=== PATIENT | male | born 1960 | race Caucasian/White ===

== ENCOUNTER → 2018-04-26 08:05 | Outpatient (BNVA) | payer MEDICARE, SELFPAY | PROVIDERS: PCP Family Medicine; Visit Provider Urology | DX: N39.41 Urge incontinence (principal); N42.89 Other specified disorders of prostate; Z12.5 Encounter for screening for malignant neoplasm of prostate; Z80.42 Family history of malignant neoplasm of prostate | CPT/HCPCS: 36415; 99213; 84153 ==

== ENCOUNTER 2018-04-26 09:02 | Outpatient (CLI) | payer MEDICARE, SELFPAY ==
[2018-04-27 09:34] LABS: PSA, Diagnostic 0.8 ng/ml (0-3.5)
== END 2018-04-26 09:22 ==
PROVIDERS: PCP Family Medicine; Visit Provider Urology
DX: N42.9 Disorder of prostate, unspecified (principal)
CPT/HCPCS: 36415; 84153

== ENCOUNTER 2018-10-04 15:59 | Outpatient (REF) | payer MEDICARE, SELFPAY ==
[2018-10-04 21:41] LABS: COMMENT (LAB VIEW ONLY) 65.96 mg/dL; Microalb ug/mg Crea 8.8 ug/mg Cr
== END 2018-10-04 16:19 ==
LOC: NCHCN 15:59
PROVIDERS: PCP Family Medicine; Visit Provider Registered Nurse
DX: I10 Essential (primary) hypertension (principal); N28.9 Disorder of kidney and ureter, unspecified; Z79.899 Other long term (current) drug therapy
CPT/HCPCS: 82043; 82570

== ENCOUNTER → 2018-12-07 10:21 | Outpatient (BNVA) | payer MEDICARE, SELFPAY | PROVIDERS: PCP Family Medicine; Visit Provider Urology | DX: N39.41 Urge incontinence (principal); R39.9 Unspecified symptoms and signs involving the genitourinary system; Z80.42 Family history of malignant neoplasm of prostate; R19.4 Change in bowel habit | CPT/HCPCS: 99213 ==

== ENCOUNTER 2018-12-07 11:23 | Outpatient (CLI) | payer MEDICARE, SELFPAY ==
[2018-12-08 09:42] LABS: PSA, Screening 0.8 ng/ml (0-3.5)
== END 2018-12-07 11:43 ==
PROVIDERS: Nurse Practitioner Gerontology; PCP Family Medicine; Visit Provider Urology
DX: N40.2 Nodular prostate without lower urinary tract symptoms (principal); Z80.42 Family history of malignant neoplasm of prostate; Z12.5 Encounter for screening for malignant neoplasm of prostate; N39.41 Urge incontinence; R39.9 Unspecified symptoms and signs involving the genitourinary system; R19.4 Change in bowel habit
CPT/HCPCS: 36415; 84153; 99213

== ENCOUNTER 2019-01-03 14:38 | Outpatient (REF) | payer MEDICARE, SELFPAY | END 2019-01-03 14:58 | LOC: NCHCN 14:38 | PROVIDERS: PCP Registered Nurse; Visit Provider Registered Nurse | DX: D64.9 Anemia, unspecified (principal); R19.4 Change in bowel habit; Z11.59 Encounter for screening for other viral diseases; Z13.818 Encounter for screening for other digestive system disorders ==

== ENCOUNTER 2019-01-04 04:53 | Outpatient (REF) | payer MEDICARE, SELFPAY ==
[2019-01-04 00:44] LABS: HCT 41.3 % (40.0-50.0); HGB 13.6 g/dL (13.5-17.5); Mean Corp. HGB Concentration 32.9 g/dL (32.0-36.0); Mean Corpuscular Hemoglobin 29.4 pg (27.0-33.0); Mean Corpuscular Volume 89.4 fL (80-95); Mean Platelet Volume 10.1 fL (8.0-11.0); Platelet Count 280 x1000/uL (130-400); RBC 4.62 m/cumm (4.50-6.00); RBC Distribution Width 13.2 % (11.8-14.1); White Blood Cell Count 6.61 k/cumm (4.4-10.8)
[2019-01-05 10:10] LABS: Hepatitis C Ab w Rflx HCV PCR Negative (NEGAT)
== END 2019-01-04 05:13 ==
LOC: NCHCN 04:53
PROVIDERS: PCP Registered Nurse; Visit Provider Registered Nurse
DX: D64.9 Anemia, unspecified (principal); R19.4 Change in bowel habit; Z11.59 Encounter for screening for other viral diseases
CPT/HCPCS: 85027; 86803

== ENCOUNTER → 2019-07-05 13:35 | Outpatient (BNVA) | payer MEDICARE, SELFPAY | PROVIDERS: PCP Registered Nurse; Referring Provider Registered Nurse; Visit Provider Urology | DX: N39.41 Urge incontinence (principal); R39.9 Unspecified symptoms and signs involving the genitourinary system; Z80.42 Family history of malignant neoplasm of prostate | CPT/HCPCS: 99213 ==

== ENCOUNTER → 2020-01-06 07:45 | Outpatient (BNVA) | payer MEDICARE, SELFPAY | PROVIDERS: PCP Registered Nurse; Referring Provider Registered Nurse; Visit Provider Urology | DX: N40.1 Benign prostatic hyperplasia with lower urinary tract symptoms (principal); N39.41 Urge incontinence; Z80.42 Family history of malignant neoplasm of prostate; R39.89 Other symptoms and signs involving the genitourinary system | CPT/HCPCS: 99213 ==

== ENCOUNTER 2020-10-02 04:17 | Outpatient (CLI) | payer MEDICARE, SELFPAY ==
[2020-10-02 08:20] LABS: Sodium, Urine 21 mmol/L
[2020-10-02 08:20] LABS: Anion Gap 9.6 mmol/L (3-11); BUN 23 mg/dL (7-18); CO2 27.4 mmol/L (21.0-32.0); CREATININE 1.8 mg/dL (0.70-1.30); Calcium 9.3 mg/dL (8.5-10.1); Chloride 108 mmol/L (98-107); Estimated GFR 38.81 (mL/min/1.73m2); Glucose 123 mg/dL (74-106); Potassium 4.1 mmol/L (3.5-5.1); Sodium 145 mmol/L (136-145)
[2020-10-02 17:20] LABS: Osmolality, Urine 244 mOsm/kg (150-1,150)
[2020-10-02 17:21] LABS: Osmolality Serum 305 mOsm/kg (275-295)
[2020-10-02 17:48] LABS: PSA, Diagnostic 0.9 ng/mL (0.0-3.5)
== END 2020-10-02 04:18 | disposition home or self-care (01) ==
LOC: LBO 04:17
PROVIDERS: PCP Family Medicine; Visit Provider Urology
DX: R39.15 Urgency of urination (principal); N18.9 Chronic kidney disease, unspecified; E87.0 Hyperosmolality and hypernatremia; Z51.81 Encounter for therapeutic drug level monitoring; Z80.42 Family history of malignant neoplasm of prostate; N40.1 Benign prostatic hyperplasia with lower urinary tract symptoms
CPT/HCPCS: 36415; 80048; 83935; 83930; 84153; 84300

== ENCOUNTER → 2021-01-08 10:22 | Outpatient (BNVA) | payer MEDICARE, SELFPAY | PROVIDERS: PCP Family Medicine; Referring Provider Registered Nurse; Visit Provider Nurse Practitioner Gerontology | DX: N40.1 Benign prostatic hyperplasia with lower urinary tract symptoms (principal); N39.41 Urge incontinence; R39.9 Unspecified symptoms and signs involving the genitourinary system; Z80.42 Family history of malignant neoplasm of prostate; Z79.899 Other long term (current) drug therapy | CPT/HCPCS: 99214 ==

== ENCOUNTER → 2021-04-15 09:01 | Outpatient (BNVA) | payer MEDICARE, SELFPAY | PROVIDERS: PCP Family Medicine; Referring Provider Family Medicine; Visit Provider Nurse Practitioner Gerontology | DX: N39.41 Urge incontinence (principal); Z80.42 Family history of malignant neoplasm of prostate; R39.89 Other symptoms and signs involving the genitourinary system; Z79.899 Other long term (current) drug therapy | CPT/HCPCS: 99213 ==

== ENCOUNTER → 2021-10-08 09:24 | Outpatient (BNVA) | payer MEDICARE, SELFPAY | PROVIDERS: PCP Family Medicine; Referring Provider Family Medicine; Visit Provider Nurse Practitioner Gerontology | DX: N39.41 Urge incontinence (principal); Z80.42 Family history of malignant neoplasm of prostate; Z12.5 Encounter for screening for malignant neoplasm of prostate; N40.1 Benign prostatic hyperplasia with lower urinary tract symptoms | CPT/HCPCS: 36415; 51798; 99214 ==

== ENCOUNTER 2021-10-08 14:01 | Outpatient (REF) | payer MEDICARE, SELFPAY | END 2021-10-08 14:02 | disposition home or self-care (01) | LOC: LBN 14:01 | PROVIDERS: PCP Family Medicine; Visit Provider Nurse Practitioner Gerontology | DX: N40.1 Benign prostatic hyperplasia with lower urinary tract symptoms (principal); N13.8 Other obstructive and reflux uropathy; N39.41 Urge incontinence; R39.89 Other symptoms and signs involving the genitourinary system; Z80.42 Family history of malignant neoplasm of prostate | CPT/HCPCS: 84153 ==

== ENCOUNTER 2021-10-08 15:39 | Outpatient (REF) | payer MEDICARE, SELFPAY ==
--- OUTSIDE RECORDS SUMMARY | 2021-10-08 15:43 | XMS_ITS | CCD ---
:1960 Author Care Team Providers Name Role Phone BONITA, Vania Attending Physician Unavailable Vital Signs Unknown or Not Available. Allergies Allergy Code Allergy Type Reaction Status No Known Allergies {Clinical 0 Drug allergy Active monitoring unavailable} Procedures Unknown or Not Available. History of Immunizations Unknown or Not Available. Problems Unknown or Not Available. Results COMPREHENSIVE METABOLIC PANEL (CMP) - Co llect Date/Time: 05/01/2021 09:30 Test Name Code Test Result Test Units Test Ref Range GLUCOSE 2345-7 119 mg/dL L=70 H=11 6 BUN 3094-0 26 mg/dL L=6 H=25 CREATININE 2160-0 1.77 mg/dL L=0.67 H=1.17 SODIUM SERUM 2951-2 145 mmol/L L=136 H=14 5 POTASSIUM SERUM 2823-3 4.6 mmol/L L=3.4 H =5.2 CHLORIDE SERUM 2075-0 108 mmol/L L=96 H= 110 CARBON DIOXIDE (CO2) 2028-9 28 mmol/L L=22 H=34 ANION GAP 35661-2 8.8 mmol/L CALCIUM SERUM 12316-2 9.6 mg/dL L=8.2 H=10.2 BILIRUBIN TOTAL 1975-2 0.4 mg/dL L=0.0 H =1.3 ALK. PHOS. 6768-6 62 U/L L=46 H=11 6 SGOT (AST) 1920-8 15 U/L L=15 H=37 SGPT (ALT) 1742-6 41 U/L L=12 H=78 TOTAL PROTEIN 2885-2 7.7 gm/dL L=6.0 H=8 .0 ALBUMIN 1751-7 4.2 gm/dL L=3.4 H=5. 0 AGE 61 years eGFR (non-Afr.Amer.) 89238-2 39 mL/min eGFR (Afr-[place]ian) 20953-2 48 mL/min LITHIUM - Collect Date/Time: 05/01/2021 09:30 Test Name Code Test Result Test Units Test Ref Range LITHIUM 3719-2 1.0 mEq/L L=0.6 H=1. 2 THYROID TESTING CASCADE* - Collect Date/ Time: 05/01/2021 09:30 Test Name Code Test Result Test Units Test Ref Range TSH. 3014-8 1.105 uIU/mL L=0.360 H=3. 740 LIPID PANEL - Collect Date/Time: 09:30 Test Name Code Test Result Test Units Test Ref Range CHOLESTEROL 2093-3 190 mg/dL L=0 H=200 TRIGLYCERIDES 2571-8 145 mg/dL L=56 H=240 HDL 2085-9 41 mg/dL L=30 H=74 non-HDL-C 32058-7 149 mg/dL L=0 H=160 LDL (CALC) 61521-6 120 mg/dL L=0 H=130 % HDL 21.6 % Chol/HDL Ratio 9830-1 4.6 L=0.0 H=4.9 CHD Relative Risk 0.9 x Avg L=0.0 H=1.0 LDL/HDL Ratio 80285-9 2.9 L=0.0 H=3.5 CHD Relative Risk. 0.8 x Avg L=0.0 H=1.0 FASTING STATUS: FASTING N/A Active Medications Medication Code Dose Units Frequency Route Modification Start Date/Time A BETABLOCKER 0 50 MILLIGRAMS DAILY ORAL 019 18:12 Prescription Detail TAKE 50 MILLIGRAMS ORAL RADHA Y amLODIPine 128601 5 MILLIGRAMS DAILY ORAL 10/30/2018 Besylate 5MG 18:12 Oral Tablet Prescription Detail TAKE 5 MILLIGRAMS ORAL DAILY Aspir 81 81MG 543109 81 MILLIGRAMS DAILY ORAL 019 Oral Tablet, 18:12 Enteric Coated Prescription Detail TAKE 81 MILLIGRAMS ORAL RADHA Y Aspir Low 1543900 81 MILLIGRAMS DAILY ORAL 10/30/2018 81MG Oral 18:12 Tablet, Enteric Coated Prescription Detail TAKE 81 MILLIGRAMS ORAL RADHA Y BUPROPION HCL 0 100 MILLIGRAMS DAILY ORAL 019 100MG ORAL 18:12 TABLET Prescription Detail TAKE 100 MILLIGRAMS ORAL RADHA LY Cetirizine HCl 74777166808 10 MILLIGRAMS DAILY ORAL 10MG Oral 18:12 Tablet Prescription Detail TAKE 10 MILLIGRAMS ORAL RADHA Y clonazePAM 729969 0.5 MILLIGRAMS BEDTIME ORAL 10/30/2018 0.5MG Oral 18:12 Tablet Prescription Detail TAKE 0.5 MILLIGRAMS ORAL BED TIME clonazePAM 0.5MG 622424 0.5 MILLIGRAMS BEDTIME ORAL 09/2018 Oral Tablet, 18:12 Disintegrating Prescription Detail TAKE 0.5 MILLIGRAMS ORAL BED TIME Fish Oil 31025695812 000 MILLIGRAMS DAILY ORAL 10/31/19 19 1000MG Oral 18:12 Capsule, Liquid Filled Prescription Detail TAKE 000 MILLIGRAMS ORAL RADHA LY FLONASE 0 2 SPRAY DAILY NASAL 10/30/2018 0.05MG/ACTUATION NASAL 1 8:12 SPRA Prescription Detail SPRAY 2 SPRAY NASAL DAILY LECITHIN 0 1 CAPSULE DAILY ORAL 10/30/2018 18:1 2 CAPSULE Prescription Detail TAKE 1 CAPSULE ORAL DAILY LEVITRA 10 MG 0 10 MILLIGRAMS NEEDED ORAL 10/30 TABLET 18:12 Prescription Detail TAKE 10 MILLIGRAMS ORAL N EEDED [place] [id number] 900-12 MILLIGRAMS EVERY ORAL 10/30/2018 Carbonate OTHER DAY 18:12 300MG Oral Capsule Prescription Detail TAKE 900-12 MILLIGRAMS ORAL EVERY OTHER DAY [place] [id number] 900 MILLIGRAMS EVERY ORAL 10/30/2018 Carbonate OTHER DAY 18:12 300MG Oral Capsule Prescription Detail TAKE 900 MILLIGRAMS ORAL GERALDINE RY OTHER DAY [place] 783598 8454 MILLIGRAMS EVERY ORAL 10/30/2018 Carbonate OTHER DAY 18:12 300MG Oral Capsule Prescription Detail TAKE 1200 MILLIGRAMS ORAL EV ROX OTHER DAY MELATONIN 5 MG 0 5 MILLIGRAMS BEDTIME ORAL 2018 QUICK DISSOLVE 18:12 Prescription Detail TAKE 5 MILLIGRAMS ORAL BEDTI ME Oxybutynin 5MG 662986 5 MILLIGRAMS NEEDED ORAL 09/2018 Oral Tablet DAILY 18:12 Prescription Detail TAKE 5 MILLIGRAMS ORAL NE EDED DAILY PROAIR HFA 0 2 PUFF NEEDED INHALATION 10/31/19 19 0.09MG/1ACTUATION 18:12 INHALA Prescription Detail 2 PUFF INHALATION NEEDED SEROquel 982333 100 MILLIGRAMS BEDTIME ORAL 10/30/2018 100MG Oral 18:12 Tablet Prescription Detail TAKE 100 MILLIGRAMS ORAL BED TIME Tamsulosin HCl 360452 0.4 MILLIGRAMS BEDTIME ORAL 2018 0.4MG Oral 18:12 Capsule Prescription Detail TAKE 0.4 MILLIGRAMS ORAL BED TIME traZODone 401581 1-2 TABLET BEDTIME ORAL 10/30/2018 hydrochloride 18:12 100MG Oral Tablet Prescription Detail TAKE 1-2 TABLET ORAL BEDTIME Vitamin C 481423 500 MILLIGRAMS DAILY ORAL 10/30/2018 500MG Oral 18:12 Tablet Prescription Detail TAKE 500 MILLIGRAMS ORAL RADHA LY Vitamin D3 38871604537 1 TABLET DAILY ORAL 9 400 IU Oral 18:12 Tablet Prescription Detail TAKE 1 TABLET ORAL DAILY WELLBUTRIN 75MG 0 75 MILLIGRAMS DAILY ORAL 10/30 ORAL TABLET 18:12 Prescription Detail TAKE 75 MILLIGRAMS ORAL RADHA Y Medications Administered During Visit Unknown or Not Available. Encounters Encounter Diagnosis Diagnosis Code Start Date Depressed bipolar I disorder in partial remission [id number] 05/01/2021 Social History Smoking Status Code Start Date End Date Never smoker [id number] Patient Decision Aids Unknown or Not Available. Discharge Instructions You were admitted to [facility] on 05/01/2021 08:44 with a principal diagnosis of Bipolar disorder, in partia l remission, most recent episode depressed You had the following tests done: COMPREHENSIVE METABOLIC PANEL (CMP) LIPID PANEL LITH IUM THYROID TESTING CASCADE* You were discharged from [facility] on 05/01/2021 08:44 Should you have any questions prior to d ischarge, please contact a member of your healthcare team. If you have left the ho spital and have any questions, please contact your primary care physician. Chief Complaint and Reason For Visit Unknown or Not Available. Function Status Unknown or Not Available. Plan of Care Unknown or Not Available. Referral/Transition of Care Unknown or Not Available.
--- OUTSIDE RECORDS SUMMARY | 2021-10-08 15:43 | XMS_ITS | CCD ---
:1960 Author Care Team Providers Name Role Phone Franchesca VELARDE Attending Physician Unavailable Vital Signs Unknown or Not Available. Allergies Allergy Code Allergy Type Reaction Status No Known Allergies {Clinical 0 Drug allergy Active monitoring unavailable} Procedures Unknown or Not Available. History of Immunizations Unknown or Not Available. Problems Unknown or Not Available. Results Unknown or Not Available. Active Medications Medication Code Dose Units Frequency Route Modification Start Date/Time A BETABLOCKER 0 50 MILLIGRAMS DAILY ORAL 019 18:12 Prescription Detail TAKE 50 MILLIGRAMS ORAL RADHA Y amLODIPine 320857 5 MILLIGRAMS DAILY ORAL 10/30/2018 Besylate 5MG 18:12 Oral Tablet Prescription Detail TAKE 5 MILLIGRAMS ORAL DAILY Aspir 81 81MG 231381 81 MILLIGRAMS DAILY ORAL 019 Oral Tablet, 18:12 Enteric Coated Prescription Detail TAKE 81 MILLIGRAMS ORAL RADHA Y Aspir Low 9307480 81 MILLIGRAMS DAILY ORAL 10/30/2018 81MG Oral 18:12 Tablet, Enteric Coated Prescription Detail TAKE 81 MILLIGRAMS ORAL RADHA Y BUPROPION HCL 0 100 MILLIGRAMS DAILY ORAL 019 100MG ORAL 18:12 TABLET Prescription Detail TAKE 100 MILLIGRAMS ORAL RADHA LY Cetirizine HCl 95874723337 10 MILLIGRAMS DAILY ORAL 10MG Oral 18:12 Tablet Prescription Detail TAKE 10 MILLIGRAMS ORAL RADHA Y clonazePAM 888348 0.5 MILLIGRAMS BEDTIME ORAL 10/30/2018 0.5MG Oral 18:12 Tablet Prescription Detail TAKE 0.5 MILLIGRAMS ORAL BED TIME clonazePAM 0.5MG 471930 0.5 MILLIGRAMS BEDTIME ORAL 09/2018 Oral Tablet, 18:12 Disintegrating Prescription Detail TAKE 0.5 MILLIGRAMS ORAL BED TIME Fish Oil 29503875311 000 MILLIGRAMS DAILY ORAL 10/31/19 19 1000MG [...] Detail TAKE 10 MILLIGRAMS ORAL N EEDED [place] 19780204 900-12 MILLIGRAMS EVERY ORAL 10/30/2018 Carbonate OTHER DAY 18:12 300MG Oral Capsule Prescription Detail TAKE 900-12 MILLIGRAMS ORAL EVERY OTHER DAY [place] 19780204 900 MILLIGRAMS EVERY ORAL 10/30/2018 Carbonate OTHER DAY 18:12 300MG Oral Capsule Prescription Detail TAKE 900 MILLIGRAMS ORAL GERALDINE RY OTHER DAY [place] 219499 6535 MILLIGRAMS EVERY ORAL 10/30/2018 Carbonate OTHER DAY 18:12 300MG Oral Capsule Prescription Detail TAKE 1200 MILLIGRAMS ORAL EV ROX OTHER DAY MELATONIN 5 MG 0 5 MILLIGRAMS BEDTIME ORAL 2018 QUICK DISSOLVE 18:12 Prescription Detail TAKE 5 MILLIGRAMS ORAL BEDTI ME Oxybutynin 5MG 761663 5 MILLIGRAMS NEEDED ORAL 09/2018 Oral Tablet DAILY 18:12 Prescription Detail TAKE 5 MILLIGRAMS ORAL NE EDED DAILY PROAIR HFA 0 2 PUFF NEEDED INHALATION 10/31/19 19 0.09MG/1ACTUATION 18:12 INHALA Prescription Detail 2 PUFF INHALATION NEEDED SEROquel 751808 100 MILLIGRAMS BEDTIME ORAL 10/30/2018 100MG Oral 18:12 Tablet Prescription Detail TAKE 100 MILLIGRAMS ORAL BED TIME Tamsulosin HCl 064695 0.4 MILLIGRAMS BEDTIME ORAL 2018 0.4MG Oral 18:12 Capsule Prescription Detail TAKE 0.4 MILLIGRAMS ORAL BED TIME traZODone 306181 1-2 TABLET BEDTIME ORAL 10/30/2018 hydrochloride 18:12 100MG Oral Tablet Prescription Detail TAKE 1-2 TABLET ORAL BEDTIME Vitamin C 297406 500 MILLIGRAMS DAILY ORAL 10/30/2018 500MG Oral 18:12 Tablet Prescription Detail TAKE 500 MILLIGRAMS ORAL RADHA LY Vitamin D3 40976690264 1 TABLET DAILY ORAL 9 400 IU Oral 18:12 Tablet Prescription Detail TAKE 1 TABLET ORAL DAILY WELLBUTRIN 75MG 0 75 MILLIGRAMS DAILY ORAL 10/30 ORAL TABLET 18:12 Prescription Detail TAKE 75 MILLIGRAMS ORAL RADHA Y Medications Administered During Visit Unknown or Not Available. Encounters Encounter Diagnosis Diagnosis Code Start Date Refusal of treatment by patient [id number] 05/15/20 21 Social History Smoking Status Code Start Date End Date Never smoker [id number] Patient Decision Aids Unknown or Not Available. Discharge Instructions You were admitted to [facility] on 05/15/2021 09:44 with a principal diagnosis of Procedure and treatment not carried out because of patient's decision for other reasons You were discharged from [facility] on 05/15/2021 09:44 Should you have any questions prior to [...]
--- OUTSIDE RECORDS SUMMARY | 2021-10-08 15:43 | XMS_ITS | CCD ---
:1960 Author Care Team Providers Name Role Phone Franchesca VELARDE Attending Physician Unavailable Vital Signs Unknown or Not Available. Allergies Allergy Code Allergy Type Reaction Status No Known Allergies {Clinical 0 Drug allergy Active monitoring unavailable} Procedures Unknown or Not Available. History of Immunizations Unknown or Not Available. Problems Unknown or Not Available. Results C REACTIVE PROTEIN HIGH SENSITIVITY* - C ollect Date/Time: 05/01/2021 09:30 Test Name Code Test Result Test Units Test Ref Range CRP-HIGH SENS. 05132-8 5.25 mg/L L=0.00 H= 3.00 CRP-HIGH SENS 98300-3 0.53 mg/dL L=0.00 H=0 .30 SED RATE* - Collect Date/Time: 09:30 Test Name Code Test Result Test Units Test Ref Range SED. RATE 4537-7 5 mm/hr L=0 H=20 Active Medications Medication Code Dose Units Frequency Route Modification Start Date/Time A BETABLOCKER 0 50 MILLIGRAMS DAILY ORAL 019 18:12 Prescription Detail TAKE 50 MILLIGRAMS ORAL RADHA Y amLODIPine 843340 5 MILLIGRAMS DAILY ORAL 10/30/2018 Besylate 5MG 18:12 Oral Tablet Prescription Detail TAKE 5 MILLIGRAMS ORAL DAILY Aspir 81 81MG 169006 81 MILLIGRAMS DAILY ORAL 019 Oral Tablet, 18:12 Enteric Coated Prescription Detail TAKE 81 MILLIGRAMS ORAL RADHA Y Aspir Low 2691105 81 MILLIGRAMS DAILY ORAL 10/30/2018 81MG Oral 18:12 Tablet, Enteric Coated Prescription Detail TAKE 81 MILLIGRAMS ORAL RADHA Y BUPROPION HCL 0 100 MILLIGRAMS DAILY ORAL 019 100MG ORAL 18:12 TABLET Prescription Detail TAKE 100 MILLIGRAMS ORAL RADHA LY Cetirizine HCl 82038660802 10 MILLIGRAMS DAILY ORAL 10MG Oral 18:12 Tablet Prescription Detail TAKE 10 MILLIGRAMS ORAL RADHA Y clonazePAM 155187 0.5 MILLIGRAMS BEDTIME ORAL 10/30/2018 0.5MG Oral 18:12 Tablet Prescription Detail TAKE 0.5 MILLIGRAMS ORAL BED TIME clonazePAM 0.5MG 443621 0.5 MILLIGRAMS BEDTIME ORAL 09/2018 Oral Tablet, 18:12 Disintegrating Prescription Detail TAKE 0.5 MILLIGRAMS ORAL BED TIME Fish Oil 80887145936 000 MILLIGRAMS DAILY ORAL 10/31/19 19 1000MG [...] Detail TAKE 10 MILLIGRAMS ORAL N EEDED [place] 19780204 900-12 MILLIGRAMS EVERY ORAL 10/30/2018 Carbonate OTHER DAY 18:12 300MG Oral Capsule Prescription Detail TAKE 900-12 MILLIGRAMS ORAL EVERY OTHER DAY [place] 19780204 900 MILLIGRAMS EVERY ORAL 10/30/2018 Carbonate OTHER DAY 18:12 300MG Oral Capsule Prescription Detail TAKE 900 MILLIGRAMS ORAL GERALDINE RY OTHER DAY [place] 168114 7755 MILLIGRAMS EVERY ORAL 10/30/2018 Carbonate OTHER DAY 18:12 300MG Oral Capsule Prescription Detail TAKE 1200 MILLIGRAMS ORAL EV ROX OTHER DAY MELATONIN 5 MG 0 5 MILLIGRAMS BEDTIME ORAL 2018 QUICK DISSOLVE 18:12 Prescription Detail TAKE 5 MILLIGRAMS ORAL BEDTI ME Oxybutynin 5MG 325101 5 MILLIGRAMS NEEDED ORAL 09/2018 Oral Tablet DAILY 18:12 Prescription Detail TAKE 5 MILLIGRAMS ORAL NE EDED DAILY PROAIR HFA 0 2 PUFF NEEDED INHALATION 10/31/19 19 0.09MG/1ACTUATION 18:12 INHALA Prescription Detail 2 PUFF INHALATION NEEDED SEROquel 208952 100 MILLIGRAMS BEDTIME ORAL 10/30/2018 100MG Oral 18:12 Tablet Prescription Detail TAKE 100 MILLIGRAMS ORAL BED TIME Tamsulosin HCl 565681 0.4 MILLIGRAMS BEDTIME ORAL 2018 0.4MG Oral 18:12 Capsule Prescription Detail TAKE 0.4 MILLIGRAMS ORAL BED TIME traZODone 717690 1-2 TABLET BEDTIME ORAL 10/30/2018 hydrochloride 18:12 100MG Oral Tablet Prescription Detail TAKE 1-2 TABLET ORAL BEDTIME Vitamin C 557817 500 MILLIGRAMS DAILY ORAL 10/30/2018 500MG Oral 18:12 Tablet Prescription Detail TAKE 500 MILLIGRAMS ORAL RADHA LY Vitamin D3 27791270175 1 TABLET DAILY ORAL 9 400 IU Oral 18:12 Tablet Prescription Detail TAKE 1 TABLET ORAL DAILY WELLBUTRIN 75MG 0 75 MILLIGRAMS DAILY ORAL 10/30 ORAL TABLET 18:12 Prescription Detail TAKE 75 MILLIGRAMS ORAL RADHA Y Medications Administered During Visit Unknown or Not Available. Encounters Encounter Diagnosis Diagnosis Code Start Date Renal failure syndrome [id number] 05/01/2021 Social History Smoking Status Code Start Date End Date Never smoker [id number] Patient Decision Aids Unknown or Not Available. Discharge Instructions You were admitted to [facility] on 05/01/2021 21:56 with a principal diagnosis of Unspecified kidney failure You had the following tests done: C REACTIVE PROTEIN HIGH SENSITIVITY* SED RATE* You were discharged from [facility] on 05/01/2021 21:56 Should you have any questions prior to d ischarge, please contact a member of your healthcare team. If you have left the spital and have any questions, please contact your primary care physician. Chief Complaint and Reason For Visit Unknown or Not Available. Function Status Unknown or Not Available. Plan of Care Unknown or Not Available. Referral/Transition of Care Unknown or Not Available.
--- OUTSIDE RECORDS SUMMARY | 2021-10-08 15:44 | XMS_ITS | CCD ---
:1960 Author Care Team Providers Name Role Phone BONITA, Vania Attending Physician Unavailable Vital Signs Unknown or Not Available. Allergies Allergy Code Allergy Type Reaction Status No Known Allergies {Clinical 0 Drug allergy Active monitoring unavailable} Procedures Unknown or Not Available. History of Immunizations Unknown or Not Available. Problems Unknown or Not Available. Results CALCIUM SERUM TOTAL - Collect Date/Time: 09/04/2021 08:15 Test Name Code Test Result Test Units Test Ref Range CALCIUM SERUM 00634-9 9.6 mg/dL L=8.2 H=1 0.2 CREATININE SERUM - Collect Date/Time: 08:15 Test Name Code Test Result Test Units Test Ref Range CREATININE 2160-0 1.74 mg/dL L=0.67 H=1.17 AGE 61 years eGFR (non-Afr.Amer.) 93817-1 40 mL/min eGFR (Afr-[place]) 41800-1 49 mL/min LITHIUM - Collect Date/Time: 09/04/2021 08:15 Test Name Code Test Result Test Units Test Ref Range LITHIUM 3719-2 0.8 mEq/L L=0.6 H=1. 2 THYROID TESTING CASCADE* - Collect Date/ Time: 09/04/2021 08:15 Test Name Code Test Result Test Units Test Ref Range TSH. 3014-8 1.368 uIU/mL L=0.360 H=3. 740 Active Medications Medication Code Dose Units Frequency Route Modification Start Date/Time A BETABLOCKER 0 50 MILLIGRAMS DAILY ORAL 019 18:12 Prescription Detail TAKE 50 MILLIGRAMS ORAL RADHA Y amLODIPine 979538 5 MILLIGRAMS DAILY ORAL 10/30/2018 Besylate 5MG 18:12 Oral Tablet Prescription Detail TAKE 5 MILLIGRAMS ORAL DAILY Aspir 81 81MG 074937 81 MILLIGRAMS DAILY ORAL 019 Oral Tablet, 18:12 Enteric Coated Prescription Detail TAKE 81 MILLIGRAMS ORAL RADHA Y Aspir Low 0087176 81 MILLIGRAMS DAILY ORAL 10/30/2018 81MG Oral 18:12 Tablet, Enteric Coated Prescription Detail TAKE 81 MILLIGRAMS ORAL RADHA Y BUPROPION HCL 0 100 MILLIGRAMS DAILY ORAL 019 100MG ORAL 18:12 TABLET Prescription Detail TAKE 100 MILLIGRAMS ORAL RADHA LY Cetirizine HCl 08591363841 10 MILLIGRAMS DAILY ORAL 10MG Oral 18:12 Tablet Prescription Detail TAKE 10 MILLIGRAMS ORAL RADHA Y clonazePAM 293295 0.5 MILLIGRAMS BEDTIME ORAL 10/30/2018 0.5MG Oral 18:12 Tablet Prescription Detail TAKE 0.5 MILLIGRAMS ORAL BED TIME clonazePAM 0.5MG 926759 0.5 MILLIGRAMS BEDTIME ORAL 09/2018 Oral Tablet, 18:12 Disintegrating Prescription Detail TAKE 0.5 MILLIGRAMS ORAL BED TIME Fish Oil 32907046075 000 MILLIGRAMS DAILY ORAL 10/31/19 19 1000MG [...] Detail TAKE 10 MILLIGRAMS ORAL N EEDED [place] 19780204 900-12 MILLIGRAMS EVERY ORAL 10/30/2018 Carbonate OTHER DAY 18:12 300MG Oral Capsule Prescription Detail TAKE 900-12 MILLIGRAMS ORAL EVERY OTHER DAY [place] 19780204 900 MILLIGRAMS EVERY ORAL 10/30/2018 Carbonate OTHER DAY 18:12 300MG Oral Capsule Prescription Detail TAKE 900 MILLIGRAMS ORAL GERALDINE RY OTHER DAY [place] 351710 5919 MILLIGRAMS EVERY ORAL 10/30/2018 Carbonate OTHER DAY 18:12 300MG Oral Capsule Prescription Detail TAKE 1200 MILLIGRAMS ORAL EV ROX OTHER DAY MELATONIN 5 MG 0 5 MILLIGRAMS BEDTIME ORAL 2018 QUICK DISSOLVE 18:12 Prescription Detail TAKE 5 MILLIGRAMS ORAL BEDTI ME Oxybutynin 5MG 455163 5 MILLIGRAMS NEEDED ORAL 09/2018 Oral Tablet DAILY 18:12 Prescription Detail TAKE 5 MILLIGRAMS ORAL NE EDED DAILY PROAIR HFA 0 2 PUFF NEEDED INHALATION 10/31/19 19 0.09MG/1ACTUATION 18:12 INHALA Prescription Detail 2 PUFF INHALATION NEEDED SEROquel 051310 100 MILLIGRAMS BEDTIME ORAL 10/30/2018 100MG Oral 18:12 Tablet Prescription Detail TAKE 100 MILLIGRAMS ORAL BED TIME Tamsulosin HCl 586090 0.4 MILLIGRAMS BEDTIME ORAL 2018 0.4MG Oral 18:12 Capsule Prescription Detail TAKE 0.4 MILLIGRAMS ORAL BED TIME traZODone 380501 1-2 TABLET BEDTIME ORAL 10/30/2018 hydrochloride 18:12 100MG Oral Tablet Prescription Detail TAKE 1-2 TABLET ORAL BEDTIME Vitamin C 684855 500 MILLIGRAMS DAILY ORAL 10/30/2018 500MG Oral 18:12 Tablet Prescription Detail TAKE 500 MILLIGRAMS ORAL RADHA LY Vitamin D3 70888749720 1 TABLET DAILY ORAL 9 400 IU Oral 18:12 Tablet Prescription Detail TAKE 1 TABLET ORAL DAILY WELLBUTRIN 75MG 0 75 MILLIGRAMS DAILY ORAL 10/30 ORAL TABLET 18:12 Prescription Detail TAKE 75 MILLIGRAMS ORAL RADHA Y Medications Administered During Visit Unknown or Not Available. Encounters Encounter Diagnosis Diagnosis Code Start Date Depressed bipolar I disorder in partial remission [id number] 09/04/2021 Social History Smoking Status Code Start Date End Date Never smoker [id number] Patient Decision Aids Unknown or Not Available. Discharge Instructions You were admitted to [facility] on 09/04/2021 21:27 with a principal diagnosis of Bipolar disorder, in partia l remission, most recent episode depressed You had the following tests done: CALCIUM SERUM TOTAL CREATININE SERUM LITHIUM THYROID TESTING CASCADE* You were discharged from [facility] on 09/04/2021 21:27 Should you have any questions prior to [...]
--- OUTSIDE RECORDS SUMMARY | 2021-10-08 15:44 | XMS_ITS | CCD ---
:1960 Author Care Team Providers Name Role Phone Franchesca VELARDE Attending Physician Unavailable Vital Signs Unknown or Not Available. Allergies Allergy Code Allergy Type Reaction Status No Known Allergies {Clinical 0 Drug allergy Active monitoring unavailable} Procedures Unknown or Not Available. History of Immunizations Unknown or Not Available. Problems Unknown or Not Available. Results BASIC METABOLIC PANEL (BMP) - Collect Da te/Time: 06/10/2021 09:20 Test Name Code Test Result Test Units Test Ref Range GLUCOSE 2345-7 109 mg/dL L=70 H=11 6 BUN 3094-0 25 mg/dL L=6 H=25 CREATININE 2160-0 1.59 mg/dL L=0.67 H=1.17 SODIUM SERUM 2951-2 141 mmol/L L=136 H=14 5 POTASSIUM SERUM 2823-3 4.1 mmol/L L=3.4 H =5.2 CHLORIDE SERUM 2075-0 107 mmol/L L=96 H= 110 CARBON DIOXIDE (CO2) 2028-9 29 mmol/L L=22 H=34 ANION GAP 20407-6 4.7 mmol/L CALCIUM SERUM 85727-2 9.6 mg/dL L=8.2 H=10.2 AGE 61 years eGFR (non-Afr.Amer.) 35985-6 45 mL/min eGFR (Afr-Senegalese) 13709-7 54 mL/min C REACTIVE PROTEIN HIGH SENSITIVITY* - C ollect Date/Time: 06/10/2021 09:20 Test Name Code Test Result Test Units Test Ref Range CRP-HIGH SENS. 27600-3 5.78 mg/L L=0.00 H= 3.00 CRP-HIGH SENS 20747-7 0.58 mg/dL L=0.00 H=0 .30 SED RATE* - Collect Date/Time: 09:20 Test Name Code Test Result Test Units Test Ref Range SED. RATE 4537-7 2 mm/hr L=0 H=20 Active Medications Medication Code Dose Units Frequency Route Modification Start Date/Time A BETABLOCKER 0 50 MILLIGRAMS DAILY ORAL 019 18:12 Prescription Detail TAKE 50 MILLIGRAMS ORAL RADHA Y amLODIPine 914621 5 MILLIGRAMS DAILY ORAL 10/30/2018 Besylate 5MG 18:12 Oral Tablet Prescription Detail TAKE 5 MILLIGRAMS ORAL DAILY Aspir 81 81MG 596809 81 MILLIGRAMS DAILY ORAL 019 Oral Tablet, 18:12 Enteric Coated Prescription Detail TAKE 81 MILLIGRAMS ORAL RADHA Y Aspir Low 9830498 81 MILLIGRAMS DAILY ORAL 10/30/2018 81MG Oral 18:12 Tablet, Enteric Coated Prescription Detail TAKE 81 MILLIGRAMS ORAL RADHA Y BUPROPION HCL 0 100 MILLIGRAMS DAILY ORAL 019 100MG ORAL 18:12 TABLET Prescription Detail TAKE 100 MILLIGRAMS ORAL RADHA LY Cetirizine HCl 97385782284 10 MILLIGRAMS DAILY ORAL 10MG Oral 18:12 Tablet Prescription Detail TAKE 10 MILLIGRAMS ORAL RADHA Y clonazePAM 552306 0.5 MILLIGRAMS BEDTIME ORAL 10/30/2018 0.5MG Oral 18:12 Tablet Prescription Detail TAKE 0.5 MILLIGRAMS ORAL BED TIME clonazePAM 0.5MG 728074 0.5 MILLIGRAMS BEDTIME ORAL 0509/2018 Oral Tablet, 18:12 Disintegrating Prescription Detail TAKE 0.5 MILLIGRAMS ORAL BED TIME Fish Oil [id number] 000 MILLIGRAMS DAILY ORAL 10/31/19 19 1000MG [...] Detail TAKE 10 MILLIGRAMS ORAL N EEDED [place] 19780204 900-12 MILLIGRAMS EVERY ORAL 10/30/2018 Carbonate OTHER DAY 18:12 300MG Oral Capsule Prescription Detail TAKE 900-12 MILLIGRAMS ORAL EVERY OTHER DAY [place] 19780204 900 MILLIGRAMS EVERY ORAL 10/30/2018 Carbonate OTHER DAY 18:12 300MG Oral Capsule Prescription Detail TAKE 900 MILLIGRAMS ORAL GERALDINE RY OTHER DAY [place] 595353 3410 MILLIGRAMS EVERY ORAL 10/30/2018 Carbonate OTHER DAY 18:12 300MG Oral Capsule Prescription Detail TAKE 1200 MILLIGRAMS ORAL EV ROX OTHER DAY MELATONIN 5 MG 0 5 MILLIGRAMS BEDTIME ORAL 2018 QUICK DISSOLVE 18:12 Prescription Detail TAKE 5 MILLIGRAMS ORAL BEDTI ME Oxybutynin 5MG 487166 5 MILLIGRAMS NEEDED ORAL 09/2018 Oral Tablet DAILY 18:12 Prescription Detail TAKE 5 MILLIGRAMS ORAL NE EDED DAILY PROAIR HFA 0 2 PUFF NEEDED INHALATION 10/31/19 19 0.09MG/1ACTUATION 18:12 INHALA Prescription Detail 2 PUFF INHALATION NEEDED SEROquel 749300 100 MILLIGRAMS BEDTIME ORAL 10/30/2018 100MG Oral 18:12 Tablet Prescription Detail TAKE 100 MILLIGRAMS ORAL BED TIME Tamsulosin HCl 477076 0.4 MILLIGRAMS BEDTIME ORAL 2018 0.4MG Oral 18:12 Capsule Prescription Detail TAKE 0.4 MILLIGRAMS ORAL BED TIME traZODone 432071 1-2 TABLET BEDTIME ORAL 10/30/2018 hydrochloride 18:12 100MG Oral Tablet Prescription Detail TAKE 1-2 TABLET ORAL BEDTIME Vitamin C 169818 500 MILLIGRAMS DAILY ORAL 10/30/2018 500MG Oral 18:12 Tablet Prescription Detail TAKE 500 MILLIGRAMS ORAL RADHA LY Vitamin D3 46735372283 1 TABLET DAILY ORAL 9 400 IU Oral 18:12 Tablet Prescription Detail TAKE 1 TABLET ORAL DAILY WELLBUTRIN 75MG 0 75 MILLIGRAMS DAILY ORAL 10/30 ORAL TABLET 18:12 Prescription Detail TAKE 75 MILLIGRAMS ORAL RADHA Y Medications Administered During Visit Unknown or Not Available. Encounters Encounter Diagnosis Diagnosis Code Start Date Renal failure syndrome [id number] 06/10/2021 Social History Smoking Status Code Start Date End Date Never smoker [id number] Patient Decision Aids Unknown or Not Available. Discharge Instructions You were admitted to [facility] on 06/10/2021 09:08 with a principal diagnosis of Unspecified kidney failure You had the following tests done: BASIC METABOLIC PANEL (BMP) C REACTIVE PROTEIN HIGH SENSITIVITY* SED RATE* You were discharged from [facility] on 06/10/2021 09:08 Should you have any questions prior to [...]
--- OUTSIDE RECORDS SUMMARY | 2021-10-08 15:44 | XMS_ITS | CCD ---
:1960 Author Care Team Providers Name Role Phone Franchesca VELARDE Attending Physician Unavailable Vital Signs Unknown or Not Available. Allergies Allergy Code Allergy Type Reaction Status No Known Allergies {Clinical 0 Drug allergy Active monitoring unavailable} Procedures Unknown or Not Available. History of Immunizations Unknown or Not Available. Problems Unknown or Not Available. Results HEMOGLOBIN A1C* - Collect Date/Time: 02/2022 08:15 Test Name Code Test Result Test Units Test Ref Range Hgb A1c 4548-4 5.6 % L=3.8 H=5. 7 MEAN BLOOD GLUCOSE 85168-6 100 mg/dL Active Medications Medication Code Dose Units Frequency Route Modification Start Date/Time A BETABLOCKER 0 50 MILLIGRAMS DAILY ORAL 019 18:12 Prescription Detail TAKE 50 MILLIGRAMS ORAL RADHA Y amLODIPine 491335 5 MILLIGRAMS DAILY ORAL 10/30/2018 Besylate 5MG 18:12 Oral Tablet Prescription Detail TAKE 5 MILLIGRAMS ORAL DAILY Aspir 81 81MG 246230 81 MILLIGRAMS DAILY ORAL 019 Oral Tablet, 18:12 Enteric Coated Prescription Detail TAKE 81 MILLIGRAMS ORAL RADHA Y Aspir Low 8159971 81 MILLIGRAMS DAILY ORAL 10/30/2018 81MG Oral 18:12 Tablet, Enteric Coated Prescription Detail TAKE 81 MILLIGRAMS ORAL RADHA Y BUPROPION HCL 0 100 MILLIGRAMS DAILY ORAL 019 100MG ORAL 18:12 TABLET Prescription Detail TAKE 100 MILLIGRAMS ORAL RADHA LY Cetirizine HCl 64897605494 10 MILLIGRAMS DAILY ORAL 10MG Oral 18:12 Tablet Prescription Detail TAKE 10 MILLIGRAMS ORAL RADHA Y clonazePAM 278325 0.5 MILLIGRAMS BEDTIME ORAL 10/30/2018 0.5MG Oral 18:12 Tablet Prescription Detail TAKE 0.5 MILLIGRAMS ORAL BED TIME clonazePAM 0.5MG 764704 0.5 MILLIGRAMS BEDTIME ORAL 09/2018 Oral Tablet, 18:12 Disintegrating Prescription Detail TAKE 0.5 MILLIGRAMS ORAL BED TIME Fish Oil 00909518430 000 MILLIGRAMS DAILY ORAL 10/31/19 19 1000MG [...] Detail TAKE 10 MILLIGRAMS ORAL N EEDED [place] 19780204 900-12 MILLIGRAMS EVERY ORAL 10/30/2018 Carbonate OTHER DAY 18:12 300MG Oral Capsule Prescription Detail TAKE 900-12 MILLIGRAMS ORAL EVERY OTHER DAY [place] 19780204 900 MILLIGRAMS EVERY ORAL 10/30/2018 Carbonate OTHER DAY 18:12 300MG Oral Capsule Prescription Detail TAKE 900 MILLIGRAMS ORAL GERALDINE RY OTHER DAY [place] 908144 9801 MILLIGRAMS EVERY ORAL 10/30/2018 Carbonate OTHER DAY 18:12 300MG Oral Capsule Prescription Detail TAKE 1200 MILLIGRAMS ORAL EV ROX OTHER DAY MELATONIN 5 MG 0 5 MILLIGRAMS BEDTIME ORAL 2018 QUICK DISSOLVE 18:12 Prescription Detail TAKE 5 MILLIGRAMS ORAL BEDTI ME Oxybutynin 5MG 662753 5 MILLIGRAMS NEEDED ORAL 09/2018 Oral Tablet DAILY 18:12 Prescription Detail TAKE 5 MILLIGRAMS ORAL NE EDED DAILY PROAIR HFA 0 2 PUFF NEEDED INHALATION 10/31/19 19 0.09MG/1ACTUATION 18:12 INHALA Prescription Detail 2 PUFF INHALATION NEEDED SEROquel 348066 100 MILLIGRAMS BEDTIME ORAL 10/30/2018 100MG Oral 18:12 Tablet Prescription Detail TAKE 100 MILLIGRAMS ORAL BED TIME Tamsulosin HCl 844119 0.4 MILLIGRAMS BEDTIME ORAL 2018 0.4MG Oral 18:12 Capsule Prescription Detail TAKE 0.4 MILLIGRAMS ORAL BED TIME traZODone 344978 1-2 TABLET BEDTIME ORAL 10/30/2018 hydrochloride 18:12 100MG Oral Tablet Prescription Detail TAKE 1-2 TABLET ORAL BEDTIME Vitamin C 651463 500 MILLIGRAMS DAILY ORAL 10/30/2018 500MG Oral 18:12 Tablet Prescription Detail TAKE 500 MILLIGRAMS ORAL RADHA LY Vitamin D3 91753447585 1 TABLET DAILY ORAL 9 400 IU Oral 18:12 Tablet Prescription Detail TAKE 1 TABLET ORAL DAILY WELLBUTRIN 75MG 0 75 MILLIGRAMS DAILY ORAL 10/30 ORAL TABLET 18:12 Prescription Detail TAKE 75 MILLIGRAMS ORAL RADHA Y Medications Administered During Visit Unknown or Not Available. Encounters Encounter Diagnosis Diagnosis Code Start Date Hyperglycemia [id number] 09/04/2021 Social History Smoking Status Code Start Date End Date Never smoker [id number] Patient Decision Aids Unknown or Not Available. Discharge Instructions You were admitted to [facility] on 09/04/2021 07:37 with a principal diagnosis of Hyperglycemia, unspecified You had the following tests done: HEMOGLOBIN A1C* You were discharged from [facility] on 09/04/2021 07:37 Should you have any questions prior to [...]
== END 2021-10-08 15:40 | disposition home or self-care (01) ==
LOC: LBN 15:39
PROVIDERS: PCP Family Medicine; Visit Provider Nurse Practitioner Gerontology

== ENCOUNTER → 2022-04-16 08:49 | Outpatient (BNVA) | payer MEDICARE, SELFPAY | PROVIDERS: PCP Family Medicine; Referring Provider Family Medicine; Visit Provider Nurse Practitioner Gerontology | DX: N40.1 Benign prostatic hyperplasia with lower urinary tract symptoms (principal); N39.41 Urge incontinence; Z80.42 Family history of malignant neoplasm of prostate | CPT/HCPCS: 51798; 99214 ==

== ENCOUNTER 2022-05-15 09:58 | Emergency (ER) | payer MEDICARE, SELFPAY ==
[2022-05-15 10:05] VITALS: BP 133/87; PULSE 92; RESP 17; TEMP 37.3; O2SAT 97
--- NOTE | 2022-05-15 10:48 | ED.GENADUL_ITS ---
Discharge Plan Disposition Patient Disposition: Home Condition: Stable Discharge Details Clinical Impression: H/O tinea corporis Primary Care Provider: Tyler Ferreira ED Provider: Patty Villafana Home Meds and New Rx's Prescriptions: New ciclopirox 0.77 % cream 1 applic topical BID 28 Days Qty: 90 1RF Continued psyllium husk [Metamucil] 0.4 gram capsule 0.4 g PO DAILY quetiapine [Seroquel] 100 mg tablet 100 mg PO QHS PRN amiloride 5 mg tablet 5 mg PO DAILY trazodone 100 MG tablet 100 mg PO DAILY aspirin 81 MG tablet,chewable 81 mg PO DAILY omega-3 fatty acids-fish oil 1 EACH capsule 1 ea PO DAILY melatonin 10 MG tablet,disintegrating 10 mg PO DAILY lithium carbonate 450 mg tablet extended release 900 mg PO QD Label Comments: 900 one day 1200 the next. amlodipine 2.5 mg tablet 10 mg PO DAILY tamsulosin 0.4 mg capsule 0.8 mg PO DAILY Qty: 180 4RF oxybutynin chloride 5 mg tablet extended release 24hr 5 mg PO DAILY Qty: 90 4RF Discharge Instructions Additional Instructions: Apply prescription topically twice daily for the next 4 weeks after showering or washing with soap and water and allowing to dry completely before application Allow to air dry as much as possible Please follow-up with your primary care physician, if this is not successfully healed after using this medication for 4 weeks you may need a dermatology referral Please return earlier should you have spreading redness, fever, worsening pain Referrals: Tyler Ferreira [Primary Care Provider] - 2 weeks Discharge Data Discharge Date/Time-TO BE ENTERED AT DEPARTURE: 05/15/22 10:52 Medical Decision Making Patient appears well, will attempt antifungal for the next 4 weeks Return precautions discussed and patient expressed understanding May need dermatology outpatient follow-up with persistent symptoms, referred back to PCP for reexamination and referral No evidence of secondary infection Medical Records Medical records reviewed: Yes I reviewed the patient's medical records. Lab Data Lab results reviewed: Yes I reviewed the patient's lab results. ECG Data Prior ECG tracings: available for review Sign Out No HPI General Date/Time Provider Initiated Documentation: 05/15/22 10:29 . HPI Narrative: This 52-year-old gentleman presents with rash to bilateral feet. He states that he has not for the past several months has been applying antifungal powder for tinea. Not improved the symptoms. He denies any fever or chills. He denies any symptoms associated with the rash. He denies prior history. He states he does wear boots frequently. Related Data Home Medications Medication Instructions Recorded Confirmed aspirin 81 mg chewable tablet 81 mg PO DAILY 02/03/17 05/15/22 melatonin 10 mg disintegrating 10 mg PO DAILY 02/03/17 05/15/22 tablet omega-3 fatty acids-fish oil 300 1 ea PO DAILY 02/03/17 05/15/22 mg-1,000 mg capsule trazodone 100 mg tablet 100 mg PO DAILY 02/03/17 05/15/22 lithium carbonate 450 mg 900 mg PO QD 12/07/18 05/15/22 tablet,extended release quetiapine 100 mg tablet (Seroquel) 100 mg PO QHS PRN 01/06/20 05/15/22 psyllium husk 0.4 gram capsule 0.4 g PO DAILY 01/08/21 05/15/22 (Metamucil) amiloride 5 mg tablet 5 mg PO DAILY 04/15/21 05/15/22 amlodipine 2.5 mg tablet 10 mg PO DAILY 04/15/21 05/15/22 tamsulosin 0.4 mg capsule 0.8 mg PO DAILY #180 tab-caps 02/19/22 05/15/22 oxybutynin chloride 5 mg 5 mg PO DAILY #90 tab-caps 03/31/22 05/15/22 tablet,extended release 24 hr ciclopirox 0.77 % topical cream 1 applic topical BID 4 weeks #90 05/15/22 grams Previous Rx's Medication Instructions Recorded tamsulosin 0.4 mg capsule 0.8 mg PO DAILY #180 tab-caps 02/19/22 oxybutynin chloride 5 mg 5 mg PO DAILY #90 tab-caps 03/31/22 tablet,extended release 24 hr ciclopirox 0.77 % topical cream 1 applic topical BID 4 weeks #90 05/15/22 grams Allergies Allergy/AdvReac Type Severity Reaction Status Date / Time haloperidol [From Haldol] Allergy Verified 05/15/22 10:07 General Stated Complaint: RashLesion REYNA: 4 Review of Systems All systems reviewed & are unremarkable except as noted in HPI and below PFSH All Active Problems (Updated 05/15/22 @ 10:47 by MARIBEL Maki) H/O tinea corporis (Acute) Impacted cerumen, left ear (Acute) Foreign body in right ear, initial encounter (Acute) Family history of prostate cancer in father (Chronic) Urgency incontinence (Chronic 02/03/17) Prostate cancer screening (Acute 02/03/17) Polyp, nasal sinus (Acute 03/06/16) The patient has a right-sided maxillary asymptomatic nasal polyp or mucocele found incidentally in 2007. Lower urinary tract symptoms (LUTS) (Chronic 02/03/17) Medical History Renal disease Family History Other Cancer Diabetes Hypertension Kidney disease Social History Smoking/Tobacco Use Status: Never Smoking risk assessment performed?: Yes Alcohol Intake: current Alcohol Intake frequency: a few times a week Drug use: Never Substance use type: does not use current occupation: disables Pets and animals: No Do you feel safe at home: Yes Do you feel safe in your relationship?: Yes Exam Const General: cooperative, comfortable and no acute distress Eyes Sclera: sclerae normal Resp Effort & Inspection: normal respiratory effort Cardio Rate: regular rate Extrem Ankle/foot/toe images: 1. Excoriated lesion, circular, no erythema 2. Excoriated lesion, circular, no erythema Course Vital Signs Vital signs: Vital Signs Temperature 37.3 C 05/15/22 10:05 Pulse 92 H 05/15/22 10:05 Respiratory Rate 17 05/15/22 10:05 Blood Pressure 133/87 05/15/22 10:05 Pulse Oximetry 97 05/15/22 10:05 Temperature 37.3 C 05/15/22 10:05 Temperature Source Temporal Artery Scan 05/15/22 10:05 Pulse 92 H 05/15/22 10:05 Respiratory Rate 17 05/15/22 10:05 Respiratory Effort Non-Labored 05/15/22 10:07 Blood Pressure 133/87 05/15/22 10:05 Blood Pressure Position Sitting 05/15/22 10:05 Pulse Oximetry 97 05/15/22 10:05 Oxygen Delivery Method Room Air 05/15/22 10:05 Oxygen Flow Rate 0 05/15/22 10:05 Pain Level 0 05/15/22 10:05 PAWSS Have you Been Recently Intoxicated or Drunk Within the Last 30 days?: No Have you Ever Experienced Previous Episodes of Alcohol Withdrawal?: No Have you ever Experienced Withdrawal Seizures?: No Have you ever Experienced Delirium Tremens(DT)s?: No Have you ever undergone Alcohol Rehabilitation Treatment (i.e, inpt ot outpatient treatment programs)?: No Have you ever Experienced Blackouts?: No Have you ever Combined Alcohol with other Downers within the last 90 days?: No Have you ever Combined Alcohol with any other Substance of Abuse during the last 90 days?: No Result: 0
== END 2022-05-15 10:52 | disposition home or self-care (01) ==
PROVIDERS: Emergency Provider Physician Assistant; PCP Family Medicine
DX: R21 Rash and other nonspecific skin eruption (principal); Z87.2 Personal history of diseases of the skin and subcutaneous tissue
CPT/HCPCS: 99283

== ENCOUNTER → 2022-10-06 10:01 | Outpatient (BNVA) | payer MEDICARE, SELFPAY | PROVIDERS: PCP Family Medicine; Visit Provider Nurse Practitioner Gerontology | DX: N40.1 Benign prostatic hyperplasia with lower urinary tract symptoms (principal); R39.89 Other symptoms and signs involving the genitourinary system; N32.81 Overactive bladder; Z80.42 Family history of malignant neoplasm of prostate | CPT/HCPCS: 36415; 51798; 80048; 99214; 84153 ==

== ENCOUNTER 2022-10-06 11:00 | Outpatient (RCR) | payer MEDICARE, SELFPAY ==
[2022-10-06 11:34] LABS: Anion Gap 5.7 mmol/L (3-11); BUN 22 mg/dL (7-18); CO2 28.3 mmol/L (21.0-32.0); CREATININE 1.7 mg/dL (0.70-1.30); Calcium 9.7 mg/dL (8.5-10.1); Chloride 108 mmol/L (98-107); Glucose 112 mg/dL (74-106); Sodium 142 mmol/L (136-145)
[2022-10-06 18:07] LABS: PSA, Diagnostic 2.2 ng/mL (<=4.5)
== END 2022-10-26 23:59 | disposition home or self-care (01) ==
LOC: LBN 11:00
PROVIDERS: PCP Family Medicine; Visit Provider Nurse Practitioner Gerontology
DX: N40.1 Benign prostatic hyperplasia with lower urinary tract symptoms (principal)
CPT/HCPCS: 80048; 84153

== ENCOUNTER 2022-12-21 11:03 | Emergency (ER) | payer MEDICARE, SELFPAY ==
[2022-12-21 11:07] VITALS: BP 143/88; PULSE 79; RESP 20; TEMP 37; O2SAT 99
--- NOTE | 2022-12-21 14:14 | W.ED.GENAD ---
Discharge Plan Disposition Patient Disposition: Home Discharge Details Clinical Impression: Cellulitis Primary Care Provider: Jerry Shaw ED Provider: Patty Villafana Home Meds and New Rx's Prescriptions: New cephalexin 500 mg capsule 500 mg PO Q6H 7 Days Qty: 28 0RF Continued psyllium husk [Metamucil] 0.4 gram capsule 0.4 g PO DAILY famotidine 20 mg tablet 20 mg PO DAILY PRN bupropion HCl 100 mg tablet sustained-release 12 hr 100 mg PO DAILY PRN quetiapine [Seroquel] 100 mg tablet 100 mg PO QHS PRN amiloride 5 mg tablet 5 mg PO DAILY trazodone 100 MG tablet 100 mg PO DAILY aspirin 81 MG tablet,chewable 81 mg PO DAILY omega-3 fatty acids-fish oil 1 EACH capsule 1 ea PO DAILY melatonin 10 MG tablet,disintegrating 10 mg PO DAILY lithium carbonate 450 mg tablet extended release 900 mg PO QD Patient Comments: 900 one day 1200 the next. amlodipine 2.5 mg tablet 10 mg PO DAILY tamsulosin 0.4 mg capsule 0.8 mg PO DAILY Qty: 180 4RF oxybutynin chloride 5 mg tablet extended release 24hr 5 mg PO DAILY Qty: 90 4RF Discharge Instructions Instructions: Cellulitis (ED) Additional Instructions: warm water 5 minutes Antibiotic as prescribed Return spreading redness, fever, worsening pain Referrals: Jerry Shaw DO [Primary Care Provider] - Discharge Data Discharge Date/Time-TO BE ENTERED AT DEPARTURE: 12/21/22 12:22 Medical Decision Making 62-year-old male presents with paronychia to fifth digit, left hand, along with the ulnar aspect, 18-gauge was used to aspirate and purulent material expressed, no lymphangitis, placed on Keflex, creatinine 1.7, creatinine clearance 59, no indication for adjustment of Keflex Placed on 7 days, warm soaks encouraged Recheck in 48 hours recommended Return precautions reviewed and patient expressed understanding Medical Records Medical records reviewed: Yes I reviewed the patient's medical records. Lab Data Lab results reviewed: Yes I reviewed the patient's lab results. HPI General Date/Time Provider Initiated Documentation: 12/21/22 11:13. HPI Narrative: This 62-year-old male presents with report of infection to fifth digit on left hand. He states he pulled a hangnail and this developed 4 days ago. He denies any fever or chills. He denies any additional complaints. States the pain is increased over the past few days. Related Data Home Medications Medication Instructions Recorded Confirmed aspirin 81 mg chewable tablet 81 mg PO DAILY 02/03/17 09/16/22 melatonin 10 mg disintegrating 10 mg PO DAILY 02/03/17 09/16/22 tablet omega-3 fatty acids-fish oil 300 1 ea PO DAILY 02/03/17 09/16/22 mg-1,000 mg capsule trazodone 100 mg tablet 100 mg PO DAILY 02/03/17 09/16/22 lithium carbonate 450 mg 900 mg PO QD 12/07/18 09/16/22 tablet,extended release quetiapine 100 mg tablet (Seroquel) 100 mg PO QHS PRN 01/06/20 09/16/22 psyllium husk 0.4 gram capsule 0.4 g PO DAILY 01/08/21 09/16/22 (Metamucil) amiloride 5 mg tablet 5 mg PO DAILY 04/15/21 09/16/22 amlodipine 2.5 mg tablet 10 mg PO DAILY 04/15/21 09/16/22 tamsulosin 0.4 mg capsule 0.8 mg PO DAILY #180 tab-caps 02/19/22 09/16/22 oxybutynin chloride 5 mg 5 mg PO DAILY #90 tab-caps 03/31/22 09/16/22 tablet,extended release 24 hr bupropion HCl 100 mg tablet,12 hr 100 mg PO DAILY PRN 09/16/22 09/16/22 sustained-release famotidine 20 mg tablet 20 mg PO DAILY PRN 09/16/22 09/16/22 cephalexin 500 mg capsule 500 mg PO Q6H 7 days #28 caps 12/21/22 Previous Rx's Medication Instructions Recorded tamsulosin 0.4 mg capsule 0.8 mg PO DAILY #180 tab-caps 02/19/22 oxybutynin chloride 5 mg 5 mg PO DAILY #90 tab-caps 03/31/22 tablet,extended release 24 hr cephalexin 500 mg capsule 500 mg PO Q6H 7 days #28 caps 12/21/22 Allergies Allergy/AdvReac Type Severity Reaction Status Date / Time haloperidol [From Haldol] Allergy Severe Verified 12/21/22 11:12 General Stated Complaint: GenMedical REYNA: 4 PFSH All Active Problems (Updated 12/21/22 @ 11:48 by MARIBEL Maki) Cellulitis (Acute) Bipolar 1 disorder (Acute) Impacted cerumen, left ear (Acute) Foreign body in right ear, initial encounter (Acute) Urgency incontinence (Chronic 02/03/17) Polyp, nasal sinus (Acute 03/06/16) The patient has a right-sided maxillary asymptomatic nasal polyp or mucocele found incidentally in 2007. Lower urinary tract symptoms (LUTS) (Chronic 02/03/17) Surgical History (Updated 09/15/22 @ 17:14 by Julianne Hernández) H/O colonoscopy (~04/09/22) 7 adenoma polyps removed Left Achilles tendinitis (~2014) Left inguinal hernia (~2002) Right Achilles tendinitis (~2000) Right inguinal hernia (~1992) [place] teeth extracted (~1985) Family History (Updated 09/15/22 @ 17:02 by Julianne Hernández) Mother , 2004 Began lithium treatment 07/14/1991 Nervous Breakdown 12/1959 Bipolar 1 disorder Manic depressive disorder Father , 07/21/2004 - after 7 months of dialysis due to renal failure Post traumatic stress disorder (PTSD) [place] Renal failure Social History (Updated 11/27/22 @ 13:41 by Haley Moe RN, RN) Smoking/Tobacco Use Status: Never Smoking risk assessment performed?: Yes Alcohol Intake: current Alcohol Intake frequency: a few times a week Drug use: Never Substance use type: does not use Adopted: No Household members: none and other Details: Just himself Housing: house Number of Children: 0 number of grandchildren: 0 Communication Needs: None Education Level: college Details: Bachelor's Degree Do you need help understanding health information?: Never current occupation: disabled Pets and animals: No Sexually active: No Do you think of yourself as: bisexual Current gender identity: male What is your relationship status?: never How often do you talk on the phone with friends or family?: three or more times per week How often do you get together with friends or relatives?: decline to answer Do you belong to any clubs or organized social groups?: no Panel score (0-1 are the most socially isolated patients): 1 What type of physical activity do you participate in: none Alana/Gnosticism: Gnosticism Special alana needs: No Seatbelt use: always Helmet use: No 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 Do you feel safe at home: Yes Do you feel safe in your relationship?: Yes Course Vital Signs Vital signs: Vital Signs Temperature 37.0 C 12/21/22 11:07 Pulse 79 12/21/22 11:07 Respiratory Rate 20 12/21/22 11:07 Blood Pressure 143/88 H 12/21/22 11:07 Pulse Oximetry 99 12/21/22 11:07 Temperature 37.0 C 12/21/22 11:07 Pulse 79 12/21/22 11:07 Respiratory Rate 20 12/21/22 11:07 Respiratory Effort Normal, Non-Labored 12/21/22 12:24 Blood Pressure 143/88 H 12/21/22 11:07 Blood Pressure Position Sitting 12/21/22 11:07 Pulse Oximetry 99 12/21/22 11:07 Oxygen Delivery Method Room Air 12/21/22 11:07 Oxygen Flow Rate 0 12/21/22 11:07 Procedures Abscess I/D Site: Hand Side (if applicable): Left Technique: Needle Aspiration Amount of fluid expressed (mL): 2 Irrigation: No Packing used?: None
== END 2022-12-21 12:22 | disposition home or self-care (01) ==
PROVIDERS: Emergency Provider Physician Assistant; PCP Family Medicine
DX: L03.012 Cellulitis of left finger (principal)
CPT/HCPCS: 99283; 99284

== ENCOUNTER → 2023-04-13 14:35 | Outpatient (BNVA) | payer MEDICARE, SELFPAY | PROVIDERS: Visit Provider Nurse Practitioner Gerontology | DX: R39.89 Other symptoms and signs involving the genitourinary system (principal); R35.1 Nocturia; Z80.42 Family history of malignant neoplasm of prostate; N39.41 Urge incontinence; N40.1 Benign prostatic hyperplasia with lower urinary tract symptoms | CPT/HCPCS: 51798; 99214 ==

== ENCOUNTER → 2023-04-21 01:30 | Outpatient (CLI) | payer MEDICARE, SELFPAY ==
--- NOTE | 2023-04-21 06:45 | DI.US_ITS ---
Exam(s) US RENAL EXAM: US RENAL CLINICAL HISTORY: monitoring kidneys for hydro,UTI SYMPTOMS,URINARY INCONTINENCE,ABNL RENAL. TECHNIQUE: Hurt scale, color and spectral Doppler were used. COMPARISON: No exams were available for comparison FINDINGS: Renal size in cm: Right: 11.8 x 5.1 x 5.8 cm left: 11.4 x 5.8 x 5.0 cm Echogenicity: Normal Hydronephrosis: No Cyst or mass: 2 centimeter simple cyst lower pole left kidney. Nephrolithiasis: No Hepatic steatosis noted. Bladder:Normal. Prevoid vol:268 cc Postvoid vol: 48 cc IMPRESSION: No evidence of hydronephrosis. Elevated postvoid residual. DATA REPOSITORY:
== END ==
PROVIDERS: Visit Provider Nurse Practitioner Gerontology
DX: N28.9 Disorder of kidney and ureter, unspecified (principal); N39.41 Urge incontinence; R39.9 Unspecified symptoms and signs involving the genitourinary system
CPT/HCPCS: 76770

== ENCOUNTER 2023-09-04 07:52 | Emergency (ER) | payer MEDICARE, SELFPAY ==
[2023-09-04 08:01] VITALS: BP 149/94; PULSE 99; RESP 18; TEMP 36.2; O2SAT 99
[2023-09-04 08:04] VITALS: BP 149/94; PULSE 99; RESP 18; TEMP 36.2; O2SAT 95
--- NOTE | 2023-09-04 08:16 | ED.GENADUL_ITS ---
Discharge Plan Disposition Patient Disposition: Home Condition: Good Discharge Details Clinical Impression: URI (upper respiratory infection), Cough ED Provider: Didi Givens Home Meds and New Rx's Prescriptions: New benzonatate 200 mg capsule 200 mg PO TID PRN (Reason: cough) Qty: 14 0RF Continued psyllium husk [Metamucil] 0.4 gram capsule 0.4 g PO DAILY famotidine 20 mg tablet 20 mg PO DAILY PRN bupropion HCl 100 mg tablet sustained-release 12 hr 100 mg PO DAILY PRN tamsulosin 0.4 mg capsule 0.8 mg PO DAILY Qty: 180 4RF quetiapine [Seroquel] 100 mg tablet 100 mg PO QHS PRN amiloride 5 mg tablet 5 mg PO DAILY trazodone 100 MG tablet 100 mg PO DAILY aspirin 81 MG tablet,chewable 81 mg PO DAILY omega-3 fatty acids-fish oil 1 EACH capsule 1 ea PO DAILY melatonin 10 MG tablet,disintegrating 10 mg PO DAILY lithium carbonate 450 mg tablet extended release 900 mg PO QD Patient Comments: 900 one day 1200 the next. amlodipine 2.5 mg tablet 10 mg PO DAILY oxybutynin chloride 5 mg tablet extended release 24hr 5 mg PO DAILY Qty: 90 4RF Discharge Instructions Instructions: Upper Respiratory Infection (ED), Acute Cough (ED) Additional Instructions: Your exam is reassuring, no evidence of pneumonia. Your labs were negative for COVID and flu. Likely viral illness. Please continue with your supportive care with increased hydration. May continue to use Mucinex if you find this helpful. Tylenol and/or ibuprofen as needed for any discomfort or fevers. Please take these as directed on the packaging. You may use the Tessalon Perles as prescribed to help with cough. Please take this only as prescribed. Please follow-up with your primary care in the next 1 to 2 weeks for reevaluation. If you develop shortness of breath, difficulty breathing or other new/worsening symptoms please seek care urgently once again. Referrals: Kate Oswald [ NON-[facility] STAFF PHYSICIAN] - Discharge Data Discharge Date/Time-TO BE ENTERED AT DEPARTURE: 09/04/23 08:45 HPI General Date/Time Provider Initiated Documentation: 09/04/23 08:00 . Limitations to Documentation: no limitations . Information obtained by: patient and RN notes reviewed . History of Present Illness 63 year old M presents to the emergency department with the chief complaint of runny nose, cough, described as mild, and is localized to the face, mouth and chest. Patient started experiencing this day(s) (4) and it has been constant. Medication improves symptom(s), (Mucinex) No exacerbating factors reported . Patient notes cough; denies chest pain, diaphoresis, fever/chills (had T max 100 initially, no fevers recently), headaches, loss of appetite, malaise, nausea/vomiting and shortness of breath. Patient did receive the following treatments prior to arrival, other (mucinex) Related Data Home Medications Medication Instructions Recorded Confirmed aspirin 81 mg chewable tablet 81 mg PO DAILY 02/03/17 01/07/23 melatonin 10 mg disintegrating 10 mg PO DAILY 02/03/17 01/07/23 tablet omega-3 fatty acids-fish oil 300 1 ea PO DAILY 02/03/17 01/07/23 mg-1,000 mg capsule trazodone 100 mg tablet 100 mg PO DAILY 02/03/17 01/07/23 lithium carbonate 450 mg 900 mg PO QD 12/07/18 01/07/23 tablet,extended release quetiapine 100 mg tablet (Seroquel) 100 mg PO QHS PRN 01/06/20 01/07/23 psyllium husk 0.4 gram capsule 0.4 g PO DAILY 01/08/21 01/07/23 (Metamucil) amiloride 5 mg tablet 5 mg PO DAILY 04/15/21 01/07/23 amlodipine 2.5 mg tablet 10 mg PO DAILY 04/15/21 01/07/23 bupropion HCl 100 mg tablet,12 hr 100 mg PO DAILY PRN 09/16/22 01/07/23 sustained-release famotidine 20 mg tablet 20 mg PO DAILY PRN 09/16/22 01/07/23 tamsulosin 0.4 mg capsule 0.8 mg (2 x 0.4 mg) PO DAILY #180 04/13/23 04/13/23 tab-caps oxybutynin chloride 5 mg 5 mg PO DAILY #90 tab-caps 04/24/23 tablet,extended release 24 hr benzonatate 200 mg capsule 200 mg PO TID PRN cough #14 caps 09/04/23 Previous Rx's Medication Instructions Recorded tamsulosin 0.4 mg capsule 0.8 mg (2 x 0.4 mg) PO DAILY #180 04/13/23 tab-caps oxybutynin chloride 5 mg 5 mg PO DAILY #90 tab-caps 04/24/23 tablet,extended release 24 hr benzonatate 200 mg capsule 200 mg PO TID PRN cough #14 caps 09/04/23 Allergies Allergy/AdvReac Type Severity Reaction Status Date / Time haloperidol [From Haldol] Allergy Severe Verified 04/13/23 14:43 General Stated Complaint: GenMedical REYNA: 4 Review of Systems Constitutional Constitutional: Reports as per HPI and Denies headache(s) Eyes Eyes: Reports as per HPI, Denies eye discharge and Denies irritation ENT Ears, Nose, Mouth, and Throat: Reports as per HPI and Denies headache(s) Cardiovascular Cardiovascular: Reports as per HPI, Denies chest pain and Denies dyspnea Respiratory Respiratory: Reports as per HPI and Denies dyspnea Gastrointestinal Gastrointestinal: Reports as per HPI, Denies abdominal pain, Denies change in bowel habits, Denies nausea and Denies vomiting Integumentary/Breasts Skin/Breast: Reports as per HPI and Denies rash Neurologic Neurologic: Reports as per HPI and Denies headache(s) Exam Const General: cooperative, healthy appearing, comfortable, no acute distress, well developed and well groomed Nutritional Appearance: well nourished and overweight Orientation: alert and awake [facility] Head: normal to inspection, normocephalic and atraumatic Ears: hearing grossly normal bilaterally, external ears normal and TM's normal bilaterally General nose exam: external nose normal and nares normal Face and sinus: normal facial exam, sinuses nontender and face symmetric Mouth: oral mucosae normal, lip normal, tongue normal, oropharynx normal and moist mucous membranes Teeth and gingiva: dentition normal Throat: posterior oropharynx normal, tonsils normal and uvula midline Eyes General: appearance normal, both eyes and all related structures Neck Neck: normal visual inspection, full ROM and no lymphadenopathy Resp Effort & Inspection: normal respiratory effort, able to speak in complete sentences and no respiratory distress Auscultation: clear to auscultation bilaterally, no rales, no rhonchi and no wheezes Cardio Rate: regular rate Rhythm: regular rhythm Heart Sounds: S1 normal and S2 normal Skin General skin exam: no rashes or lesions noted Neuro General: patient alert and patient awake Cognition: normal cognition Speech: speech normal Gait: normal gait Course Vital Signs Vital signs: Vital Signs Temperature 36.2 C L 09/04/23 08:01 Pulse 99 H 09/04/23 08:01 Respiratory Rate 18 09/04/23 08:01 Blood Pressure 149/94 H 09/04/23 08:01 Pulse Oximetry 99 09/04/23 08:01 Temperature 36.2 C L 09/04/23 08:04 Temperature Source Tympanic 09/04/23 08:04 Pulse 99 H 09/04/23 08:04 Respiratory Rate 18 09/04/23 08:04 Respiratory Effort Normal, Non-Labored 09/04/23 08:04 Respiratory Depth Normal 09/04/23 08:04 Respiratory Pattern Normal 09/04/23 08:04 Blood Pressure 149/94 H 09/04/23 08:04 Blood Pressure Position Sitting 09/04/23 08:04 Pulse Oximetry 95 09/04/23 08:04 Oxygen Delivery Method Room Air 09/04/23 08:04 Oxygen Flow Rate 0 09/04/23 08:01 Medical Decision Making Patient is a pleasant 63-year-old male with past medical history significant for ABHI, bipolar, presenting today with chief complaint rhinorrhea, congestion, cough x 4 days. States that he initially had some fevers with a Tmax of 100 ?F. Has been afebrile more recent days. He denies any shortness of breath, chest pain. No GI upset. No known sick contacts. On exam, patient appears nontoxic. Resting comfortably no acute distress. Appears slightly dehydrated but he does state that he has been drinking large amount of water. Otherwise, normal HEENT exam as well as clear lung vaughan. Normal cardiac exam. Negative for flu and COVID. History exam is most consistent with a viral illness. No evidence to suggest bacterial illness. Patient does not appear septic. Encouraged supportive care. Return precautions discussed. Encouraged follow-up with primary care. All of his questions and concerns were addressed and he is in agreement this plan. Is cough at night seems to be his primary concern, I did encourage that he try to sit himself upright as this does sound to be more postnasal drip and I also prescribed Tessalon Perles. Quality:SDOH Health Related Social Needs: No Data to Display PFSH All Active Problems (Updated 09/04/23 @ 08:25 by MARIBEL Crockett) Cough (Acute) URI (upper respiratory infection) (Acute) Bipolar 1 disorder (Acute) Impacted cerumen, left ear (Acute) Foreign body in right ear, initial encounter (Acute) Urgency incontinence (Chronic 02/03/17) Polyp, nasal sinus (Acute 03/06/16) The patient has a right-sided maxillary asymptomatic nasal polyp or mucocele found incidentally in 2007. Lower urinary tract symptoms (LUTS) (Chronic 02/03/17) Medical History (Updated 09/04/23 @ 08:25 by MARIBEL Crockett) Obstructive sleep apnea Surgical History [place] teeth extracted (~1985) Left Achilles tendinitis (~2014) Right Achilles tendinitis (~2000) Left inguinal hernia (~2002) Right inguinal hernia (~1992) H/O colonoscopy (~04/09/22) 7 adenoma polyps removed Family History Mother , 2004 Began lithium treatment 07/14/1991 Nervous Breakdown 12/1959 Bipolar 1 disorder Manic depressive disorder Father , 07/21/2004 - after 7 months of dialysis due to renal failure Post traumatic stress disorder (PTSD) WW II - 1946 Renal failure Social History Smoking/Tobacco Use Status: Never Smoking risk assessment performed?: Yes Alcohol Intake: current Alcohol Intake frequency: a few times a week Drug use: Never Substance use type: does not use Adopted: No Household members: none and other Details: Just himself Housing: house Number of Children: 0 number of grandchildren: 0 Communication Needs: None Education Level: college Details: Bachelor's Degree Do you need help understanding health information?: Never current occupation: disabled Pets and animals: No Sexually active: No Do you think of yourself as: bisexual Current gender identity: male What is your relationship status?: never How often do you talk on the phone with friends or family?: three or more times per week How often do you get together with friends or relatives?: decline to answer Do you belong to any clubs or organized social groups?: no Panel score (0-1 are the most socially isolated patients): 1 What type of physical activity do you participate in: none Alana/Scientology: Whitney Special alana needs: No Seatbelt use: always Helmet use: No 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
[2023-09-04 08:28] VITALS: PULSE 96; O2SAT 95
[2023-09-04 08:38] VITALS: PULSE 95
== END 2023-09-04 08:45 | disposition home or self-care (01) ==
LOC: ER 08:39
PROVIDERS: Emergency Provider Physician Assistant
DX: J06.9 Acute upper respiratory infection, unspecified (principal); R05.9 Cough, unspecified; G47.33 Obstructive sleep apnea (adult) (pediatric); Z79.82 Long term (current) use of aspirin; Z11.52 Encounter for screening for COVID-19
CPT/HCPCS: 99283

== ENCOUNTER → 2023-10-19 14:43 | Outpatient (BNVA) | payer MEDICARE, SELFPAY | PROVIDERS: Visit Provider Nurse Practitioner Gerontology | DX: Z80.42 Family history of malignant neoplasm of prostate (principal); N40.1 Benign prostatic hyperplasia with lower urinary tract symptoms; N39.41 Urge incontinence; N13.8 Other obstructive and reflux uropathy; N28.9 Disorder of kidney and ureter, unspecified | CPT/HCPCS: 51798; 99214 ==

== ENCOUNTER 2023-10-19 15:47 | Outpatient (CLI) | payer MEDICARE, SELFPAY ==
[2023-10-20 18:37] LABS: PSA, Diagnostic 1.3 ng/mL (<=4.5)
== END 2023-10-19 15:48 | disposition home or self-care (01) ==
LOC: LBO 15:49
PROVIDERS: Visit Provider Nurse Practitioner Gerontology
DX: N40.1 Benign prostatic hyperplasia with lower urinary tract symptoms (principal); N13.8 Other obstructive and reflux uropathy; N39.41 Urge incontinence; R39.89 Other symptoms and signs involving the genitourinary system; Z80.42 Family history of malignant neoplasm of prostate
CPT/HCPCS: 36415; 51798; 99214; 84153

== ENCOUNTER 2024-01-10 09:17 | Emergency (ER) | payer MEDICARE, SELFPAY ==
[2024-01-10 09:20] VITALS: BP 120/93; PULSE 83; RESP 16; TEMP 36.1; O2SAT 99
--- NOTE | 2024-01-10 09:27 | W.ED.GENAD ---
Discharge Plan Disposition Patient Disposition: Home Condition: Stable Discharge Details Clinical Impression: Cellulitis of left middle finger Primary Care Provider: Unknown,Unknown ED Provider: Brandan Hernandez Home Meds and New Rx's Prescriptions: New cephalexin 500 mg capsule 500 mg PO QID 7 Days Qty: 28 0RF Continued psyllium husk [Metamucil] 0.4 gram capsule 0.4 g PO DAILY famotidine 20 mg tablet 20 mg PO DAILY PRN bupropion HCl 100 mg tablet sustained-release 12 hr 100 mg PO DAILY PRN quetiapine [Seroquel] 100 mg tablet 100 mg PO QHS PRN amiloride 5 mg tablet 10 mg PO DAILY tamsulosin 0.4 mg capsule 0.4 mg PO DAILY trazodone 100 MG tablet 100 mg PO DAILY aspirin 81 MG tablet,chewable 81 mg PO DAILY omega-3 fatty acids-fish oil 1 EACH capsule 1 ea PO DAILY melatonin 10 MG tablet,disintegrating 10 mg PO DAILY lithium carbonate 450 mg tablet extended release 900 mg PO QD Patient Comments: 900 one day 1200 the next. amlodipine 2.5 mg tablet 10 mg PO DAILY oxybutynin chloride 5 mg tablet extended release 24hr 5 mg PO DAILY Qty: 90 4RF benzonatate 200 mg capsule 200 mg PO TID PRN (Reason: cough) Qty: 14 0RF Discharge Instructions Instructions: Cephalexin, Cellulitis (Skin Infection), Adult ED Additional Instructions: You were seen in the emergency department for your 2-week old cut on your left middle finger, there is some callused skin there may be a tiny splinter here but nothing actionable by incision and drainage, there is no large fluctuant swelling, no esposito erythema or severe fingerpad infection. Please take the prescribed cephalexin and sent to [facility] in [place] for 1 week, take Tylenol and ibuprofen as needed for pain, perform hot compresses, you may choose to debride the callused skin on your own at home. Please return for signs of severe spreading infection like redness spreading up the hand, red streaking up the arm, fever, severe increase in swelling and pain. Discharge Data Discharge Date/Time-TO BE ENTERED AT DEPARTURE: 01/10/24 09:38 HPI General Date/Time Provider Initiated Documentation: 01/10/24 09:27. HPI Narrative: 63 year-old male presents to ED today by POV/ambulating with a chief complaint of L middle finger possible infection with onset 2 weeks ago from a minor cut. Quality described as feels like there is shit in it, no radiation to esposito swelling or redness, warmth to touch, purulent drainage, inability to move the finger, sensory deficits, red streaking up the arm. Severity is described as mild to moderate. Palliating factors include nothing attempted. Provoking factors include nothing specific. Patient not anticoagulated. Related Data Home Medications ?Medication ?Instructions ?Recorded ?Confirmed aspirin 81 mg chewable tablet 81 mg PO DAILY 02/03/17 01/07/23 melatonin 10 mg disintegrating 10 mg PO DAILY 02/03/17 01/07/23 tablet omega-3 fatty acids-fish oil 300 1 ea PO DAILY 02/03/17 01/07/23 mg-1,000 mg capsule trazodone 100 mg tablet 100 mg PO DAILY 02/03/17 01/07/23 lithium carbonate 450 mg 900 mg PO QD 12/07/18 01/07/23 tablet,extended release quetiapine 100 mg tablet (Seroquel) 100 mg PO QHS PRN 01/06/20 01/07/23 psyllium husk 0.4 gram capsule 0.4 g PO DAILY 01/08/21 01/07/23 (Metamucil) amlodipine 2.5 mg tablet 10 mg PO DAILY 04/15/21 01/07/23 bupropion HCl 100 mg tablet,12 hr 100 mg PO DAILY PRN 09/16/22 01/07/23 sustained-release famotidine 20 mg tablet 20 mg PO DAILY PRN 09/16/22 01/07/23 oxybutynin chloride 5 mg 5 mg PO DAILY #90 tab-caps 04/24/23 tablet,extended release 24 hr benzonatate 200 mg capsule 200 mg PO TID PRN cough #14 caps 09/04/23 amiloride 5 mg tablet 10 mg PO DAILY 10/19/23 tamsulosin 0.4 mg capsule 0.4 mg PO DAILY 10/19/23 cephalexin 500 mg capsule 500 mg PO QID 7 days #28 caps 01/10/24 Previous Rx's ?Medication ?Instructions ?Recorded oxybutynin chloride 5 mg 5 mg PO DAILY #90 tab-caps 04/24/23 tablet,extended release 24 hr benzonatate 200 mg capsule 200 mg PO TID PRN cough #14 caps 09/04/23 cephalexin 500 mg capsule 500 mg PO QID 7 days #28 caps 01/10/24 Allergies Allergy/AdvReac Type Severity Reaction Status Date / Time haloperidol (From Haldol) Allergy Severe Other (See Verified 10/19/23 14:52 Comment) General Stated Complaint: Laceration REYNA: 4 Review of Systems All systems reviewed & are unremarkable except as noted in HPI and below Exam Narrative Exam Narrative: GENERAL APPEARANCE: Well-nourished, non-toxic, awake and alert, atraumatic, no acute distress. SKIN: Warm, pink, dry, very minor 0.5 cm laceration that is callused on L middle finger fingerpad, question a small splinter in the retained but nothing retrievable, no felon or esposito erythema, no discharge, no warmth to touch. HEAD: Normocephalic, atraumatic, normal hair distribution for gender/age. EYES: Normal conjunctiva, no exudates on lids/lashes. ENT: Nares patent, no circumoral cyanosis, no facial swelling NECK: Supple, trachea midline, painless cervical ROM. LUNGS/CHEST: Non-labored respirations, normal A/P diameter, symmetrical expansion, no chest wall deformity HEART (CV/PV): No peripheral edema, no JVD. ABDOMEN: Soft, non-distended, no guarding. MSK: Normal ROM, no swelling/deformity to bilateral UEs or LEs, moving all extremities without weakness, no cyanosis, spine midline without tenderness, normal curvature. NEURO: Mental Status AAOx4 - alert to person, place, time, events No facial droop, no forehead involvement. Motor: No focal weakness - strength 5/5 in bilateral UEs and LEs, proximal and distal, symmetric. Sensory: sensation intact to light touch globally. Gait normal: patient ambulated without ataxia into ED room. PSYCH: euthymic, cooperative, pleasant, appropriate speech Course Vital Signs Vital signs: Vital Signs Temperature 36.1 C L 01/10/24 09:20 Pulse 83 01/10/24 09:20 Respiratory Rate 16 01/10/24 09:20 Blood Pressure 120/93 H 01/10/24 09:20 Pulse Oximetry 99 01/10/24 09:20 Temperature 36.1 C L 01/10/24 09:20 Temperature Source Tympanic 01/10/24 09:20 Pulse 83 01/10/24 09:20 Respiratory Rate 16 01/10/24 09:20 Blood Pressure 120/93 H 01/10/24 09:20 Blood Pressure Position Sitting 01/10/24 09:20 Pulse Oximetry 99 01/10/24 09:20 Oxygen Delivery Method Room Air 01/10/24 09:20 Oxygen Flow Rate 0 01/10/24 09:20 Medical Decision Making This dictation utilizes [id number] dictation software and may contain unedited grammatical errors. 63 year-old male presents to ED today by POV/ambulating with a chief complaint of L middle finger possible infection with onset 2 weeks ago from a minor cut. Quality described as feels like there is shit in it, no radiation to esposito swelling or redness, warmth to touch, purulent drainage, inability to move the finger, sensory deficits, red streaking up the arm. Severity is described as mild to moderate. Palliating factors include nothing attempted. Provoking factors include nothing specific. Patients' medical history: Noncontributory. Family and social history: Noncontributory. Pertinent exam findings / vital signs include very minor 0.5 cm laceration that is callused on L middle finger fingerpad, question a small splinter in the retained but nothing retrievable, no felon or esposito erythema, no discharge, no warmth to touch. Differential / pathologies of concern include cellulitis, not abscess or felon, possible tiny splinter. Diagnostic studies of: -none. Interventions of: -Rx for cephalexin. ED Course/Assessment/Plan: Counseled the patient on no visible splinter though there could be a small piece of retained material in there, counseled him that the callus skin on his left middle finger is a normal part of the healing process, he may try to debride that on his own. Provided cephalexin by prescription for mild redness without signs of severe cellulitis, counseled on Tylenol and ibuprofen use. Findings not consistent with sepsis, felon, large retained foreign body. Disposition of cellulitis of left middle finger. Patient verbalized understanding of the plan and return to ED criteria and engaged in shared decision making. Medical Records Medical records reviewed: Yes I reviewed the patient's medical records. Quality:SDOH Health Related Social Needs: No Data to Display PFSH All Active Problems (Updated 01/10/24 @ 09:28 by MARIBEL James) Cellulitis of left middle finger (Acute) Bipolar 1 disorder (Acute) Impacted cerumen, left ear (Acute) Foreign body in right ear, initial encounter (Acute) Urgency incontinence (Chronic 02/03/17) Polyp, nasal sinus (Acute 03/06/16) The patient has a right-sided maxillary asymptomatic nasal polyp or mucocele found incidentally in 2007. Lower urinary tract symptoms (LUTS) (Chronic 02/03/17) Medical History (Updated 01/10/24 @ 09:28 by MARIBEL James) Obstructive sleep apnea Surgical History [place] teeth extracted (~1985) Left Achilles tendinitis (~2014) Right Achilles tendinitis (~2000) Left inguinal hernia (~2002) Right inguinal hernia (~1992) H/O colonoscopy (~04/09/22) 7 adenoma polyps removed Family History Mother , 2004 Began lithium treatment 07/14/1991 Nervous Breakdown 12/1959 Bipolar 1 disorder Manic depressive disorder Father , 07/21/2004 - after 7 months of dialysis due to renal failure Post traumatic stress disorder (PTSD) WW II [place] - 1946 Renal failure Social History Smoking/Tobacco Use Status: Never Smoking risk assessment performed?: Yes Alcohol Intake: current Alcohol Intake frequency: a few times a week Drug use: Never Substance use type: does not use Adopted: No Household members: none and other Details: Just himself Housing: house Number of Children: 0 number of grandchildren: 0 Communication Needs: None Education Level: college Details: Bachelor's Degree Do you need help understanding health information?: Never current occupation: disabled Pets and animals: No Sexually active: No Do you think of yourself as: bisexual Current gender identity: male What is your relationship status?: never How often do you talk on the phone with friends or family?: three or more times per week How often do you get together with friends or relatives?: decline to answer Do you belong to any clubs or organized social groups?: no Panel score (0-1 are the most socially isolated patients): 1 What type of physical activity do you participate in: none Alana/Judaism: Whitney Special alana needs: No Seatbelt use: always Helmet use: No Drive intox 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
== END 2024-01-10 09:38 | disposition home or self-care (01) ==
PROVIDERS: Emergency Provider Physician Assistant
DX: L03.012 Cellulitis of left finger (principal)
CPT/HCPCS: 99283

== ENCOUNTER → 2024-04-19 13:48 | Outpatient (BNVA) | payer MEDICARE, SELFPAY | PROVIDERS: PCP Family Medicine; Visit Provider Nurse Practitioner Gerontology | DX: N40.1 Benign prostatic hyperplasia with lower urinary tract symptoms (principal); N39.41 Urge incontinence; Z80.42 Family history of malignant neoplasm of prostate | CPT/HCPCS: 51798; 81003; 99214 ==

== ENCOUNTER → 2024-07-20 13:43 | Outpatient (BNVA) | payer MEDICARE, SELFPAY | PROVIDERS: PCP Family Medicine; Referring Provider Family Medicine; Visit Provider Nurse Practitioner Gerontology | DX: R97.20 Elevated prostate specific antigen [PSA] (principal); N40.1 Benign prostatic hyperplasia with lower urinary tract symptoms; N13.8 Other obstructive and reflux uropathy; N39.41 Urge incontinence | CPT/HCPCS: 51798; 99215 ==

== ENCOUNTER 2024-10-11 04:01 | Outpatient (CLI) | payer MEDICARE, SELFPAY ==
[2024-10-11 18:53] LABS: PSA, Diagnostic 1.4 ng/mL (<=4.5)
== END 2024-10-11 04:02 | disposition home or self-care (01) ==
LOC: LBO 04:01
PROVIDERS: PCP Family Medicine; Visit Provider Nurse Practitioner Gerontology
DX: R97.20 Elevated prostate specific antigen [PSA] (principal); N39.41 Urge incontinence; R39.9 Unspecified symptoms and signs involving the genitourinary system
CPT/HCPCS: 36415; 84153

== ENCOUNTER → 2024-10-18 14:05 | Outpatient (BNVA) | payer MEDICARE, SELFPAY | PROVIDERS: PCP Family Medicine; Visit Provider Nurse Practitioner Gerontology | DX: R39.9 Unspecified symptoms and signs involving the genitourinary system; Z80.42 Family history of malignant neoplasm of prostate; N40.1 Benign prostatic hyperplasia with lower urinary tract symptoms; N32.81 Overactive bladder | CPT/HCPCS: 51798; 99215 ==

== ENCOUNTER 2025-02-01 09:42 | Outpatient (CLI) | payer MEDICARE, SELFPAY ==
[2025-02-01 08:36] LABS: Hemoglobin A1C 5.2 % (<5.7)
[2025-02-01 08:55] LABS: Lithium 0.8 mmol/L (0.6-1.2)
[2025-02-01 09:04] LABS: Calcium 9.3 mg/dL (8.5-10.1); Estimated GFR 32.83 (mL/min/1.73m2); TSH (W/Ref FT4) 1.15 uIU/mL (0.36-3.74)
== END 2025-02-01 09:43 | disposition home or self-care (01) ==
LOC: LBO 09:44
PROVIDERS: PCP Family Medicine; Visit Provider Psychiatry & Neurology Psychiatry
DX: Z79.899 Other long term (current) drug therapy (principal); F31.75 Bipolar disorder, in partial remission, most recent episode depressed
CPT/HCPCS: 36415; 80178; 82310; 82565; 83036; 84443

== ENCOUNTER → 2025-04-19 14:49 | Outpatient (BNVA) | payer MEDICARE, SELFPAY | PROVIDERS: PCP Family Medicine; Visit Provider Nurse Practitioner Gerontology | DX: N40.1 Benign prostatic hyperplasia with lower urinary tract symptoms (principal); N32.81 Overactive bladder; N39.41 Urge incontinence; R39.9 Unspecified symptoms and signs involving the genitourinary system; Z80.42 Family history of malignant neoplasm of prostate | CPT/HCPCS: 99215; 51798 ==